=== PATIENT | female | born 1975 | race Hispanic/Latino ===

== ENCOUNTER 2024-12-22 16:44 | Inpatient (IN) | payer BC, OTHER ==
[~2024-12-22] VITALS: Ht 165.1 cm; Wt 129.7 kg
[~2024-12-22 16:44] MED LIST: BACTRIM DS TAB1 EACH PO; DOXYCYCLINE HY100 MG PO; METFORMIN HCL500 MG PO; NORCO 10MG-325MG1 EA PO; ULTRAM50 MG PO
[2024-12-22 17:48] LABS: BASOPHILS % 0.5 % (0.0-1.0); EOSINOPHILS % 2.9 % (0.0-6.0); LYMPHOCYTES % 14.9 % (18.0-39.1); MONOCYTES % 8.0 % (4.4-11.3); NEUTROPHILS % 73.4 % (38.7-80.0); RED CELL DISTRIBUTION WIDTH 12.3 % (11.7-14.4)
[2024-12-22 17:53] LABS: INR 1.01
[2024-12-22 18:03] LABS: EST GLOMERULAR FILTRATION RATE 44 ML/MIN (>=60)
[2024-12-22] MEDS: KETOROLAC TROMETHAMINE 30 MG/ML VIAL IV STA (18:06)
[2024-12-22] MEDS: SODIUM CHLORIDE 0.9% 1000ML 1,000 ML IV STA (18:08)
[2024-12-22 18:26] LABS: ETHANOL < 10.0 mg/dL (0.0-10.0)
[2024-12-22 18:33] LABS: LEUKOCYTE ESTERASE ,URINE MODERATE (NEGATIVE); PROTEIN,URINE DIPSTICK 2+ (NEGATIVE)
[2024-12-22 18:34] LABS: AMPHETAMINES SCREEN,URINE NEGATIVE (NEGATIVE); CANNABINOIDS SCREEN,URINE POSITIVE (NEGATIVE); COCAINE SCREEN,URINE NEGATIVE (NEGATIVE); METHADONE SCREEN, URINE NEGATIVE (NEGATIVE); OPIATES SCREEN,URINE NEGATIVE (NEGATIVE); URINE UROBILINOGEN 1 mg/dL (0.2 - 1)
[2024-12-22 18:46] LABS: WBC,URINE (MAN) 21-50 /HPF (0-5)
[2024-12-22 19:11] LABS: CORONAVIRUS COVID-19 AG NEGATIVE (NEGATIVE)
[2024-12-22] MEDS ORDERED: CLOPIDOGREL BISULFATE 75 MG TAB ONE (21:09)
[2024-12-22] MEDS: ASPIRIN 81 MG CHEW TAB PO ONE (21:09)
[2024-12-22] MEDS: ASPIRIN 325 MG TAB PO ONE (21:14)
[2024-12-22] MEDS: CLOPIDOGREL BISULFATE 300 MG TAB-DO NOT STOCK PO ONE (21:14)
[2024-12-22] MEDS ORDERED: DEXTROSE 50% SYRINGE 50 ML IV PRN (21:45)
[2024-12-22] MEDS: INSULIN REGULAR, HUMAN 100 UNIT/1 ML SQ SCH (21:45)
[2024-12-22 22:29] VITALS: PULSE 87; RESP 16; TEMP 98.2
[2024-12-22 22:30] VITALS: PULSE 86; RESP 18; O2SAT 99
[2024-12-22 23:30] VITALS: BP 135/66; PULSE 83; RESP 18; TEMP 98.3; O2SAT 100
[2024-12-23] VITALS (9 sets, daily range): BP systolic 133–168; BP diastolic 66–90; PULSE 74–85; RESP 17–20; TEMP 97.4–98.3; O2SAT 96–100
[2024-12-23] MEDS ORDERED: CYCLOBENZAPRINE10 MG PO (02:50)
[2024-12-23] MEDS ORDERED: METOPROLOL TART25 MG PO (02:50)
[2024-12-23] MEDS ORDERED: GABAPENTIN600 MG PO (02:50)
[2024-12-23] MEDS ORDERED: ATORVASTATIN CA40 MG PO (02:50)
[2024-12-23] MEDS ORDERED: JARDIANCE25 MG PO (02:50)
[2024-12-23] MEDS ORDERED: NIFEDIPINE ER30 MG PO (02:50)
[2024-12-23] MEDS ORDERED: TRULICITY4.5 MG/0.5 SC (02:50)
[2024-12-23] MEDS ORDERED: LIDOCAINE1 EACH TOP (02:50)
[2024-12-23] MEDS ORDERED: LOSARTAN POTAS100 MG PO (02:50)
[2024-12-23] MEDS ORDERED: LANTUS 3ML100 UNITS/ SC (02:51)
[2024-12-23 05:23] LABS: BASOPHILS % 0.5 % (0.0-1.0); EOSINOPHILS % 5.1 % (0.0-6.0); LYMPHOCYTES % 24.4 % (18.0-39.1); MONOCYTES % 9.3 % (4.4-11.3); NEUTROPHILS % 60.5 % (38.7-80.0); RED CELL DISTRIBUTION WIDTH 12.1 % (11.7-14.4)
[2024-12-23 05:56] LABS: CHOL/HDL RATIO 4.2 (3.0-3.6); EST GLOMERULAR FILTRATION RATE 57.0 ML/MIN (>=60); LDL CHOLESTEROL 78.0 MG/DL (60-130)
[2024-12-23] MEDS: ONDANSETRON HCL INJ 2MG/ML 2ML 2 MG/ML VIAL IV PRN (07:52)
[2024-12-23] MEDS: Morphine 4mg INJECTION 4 MG/ML INJ IV PRN (07:52)
[2024-12-23] MEDS: CLOPIDOGREL BISULFATE 75 MG TAB PO SCH (09:27)
[2024-12-23] MEDS: ASPIRIN 325 MG TAB PO SCH (09:28)
[2024-12-23] MEDS ORDERED: MELATONIN 5 MG TABLET PO PRN (09:30)
[2024-12-23] MEDS ORDERED: DIPHENHYDRAMINE HCL 25 MG CAP PO PRN (09:30)
[2024-12-23] MEDS ORDERED: HYDRALAZINE HCL 20 MG/ML VIAL IV PRN (09:30)
[2024-12-23] MEDS ORDERED: LIDOCAINE 4% PATCH TP PRN (09:30)
[2024-12-23] MEDS ORDERED: ACETAMINOPHEN 325 MG TAB PO PRN (09:30)
[2024-12-23] MEDS ORDERED: DOCUSATE SODIUM 100 MG CAP PO PRN (09:30)
[2024-12-23] MEDS ORDERED: BENZONATATE 100 MG CAP PO PRN (09:30)
[2024-12-23] MEDS ORDERED: SIMETHICONE 80 MG CHEW PO PRN (09:30)
[2024-12-23] MEDS ORDERED: DEXTROSE 50% SYRINGE 50 ML IV PRN (09:30)
[2024-12-23] MEDS ORDERED: ALBUTEROL/IPRATROPIUM 3 ML NEB NEB PRN (09:30)
[2024-12-23] MEDS ORDERED: IOPAMIDOL 370 MG/ML 100 ML INFUS..BTL INJ ONE (10:16)
[2024-12-23] MEDS: SODIUM CHLORIDE 0.9% 1000ML 1,000 ML IV SCH ×2 (11:10→15:07)
[2024-12-23] MEDS: POTASSIUM CHLORIDE 20 MEQ TAB CR PO PRN (11:11)
[2024-12-23] MEDS: METOPROLOL TARTRATE 25 MG TAB PO SCH (11:16)
[2024-12-23] MEDS ORDERED: ENOXAPARIN SOD INJ 40 MG/0.4 ML SYR SC SCH (17:00)
[2024-12-23] MEDS: ENOXAPARIN SOD INJ 40 MG/0.4 ML SYR SC SCH (17:03)
[2024-12-24] VITALS (8 sets, daily range): BP systolic 137–179; BP diastolic 75–89; PULSE 73–83; RESP 18–20; TEMP 97.5–98.5; O2SAT 98–100
[2024-12-24 05:32] LABS: BASOPHILS % 0.6 % (0.0-1.0); EOSINOPHILS % 5.4 % (0.0-6.0); LYMPHOCYTES % 26.8 % (18.0-39.1); MONOCYTES % 6.7 % (4.4-11.3); NEUTROPHILS % 60.3 % (38.7-80.0); RED CELL DISTRIBUTION WIDTH 12.0 % (11.7-14.4)
[2024-12-24 06:11] LABS: EST GLOMERULAR FILTRATION RATE 92.0 ML/MIN (>=60)
[2024-12-24] MEDS: PANTOPRAZOLE SOD 40 MG TABEC PO SCH (07:30)
[2024-12-24] MEDS ORDERED: REGADENOSON 0.4 MG/5 ML SYR IV ONE (09:55)
[2024-12-24] MEDS ORDERED: SODIUM CHLORIDE 0.9% 100 ML ONE (10:39)
[2024-12-24] MEDS ORDERED: IOPAMIDOL 370 MG/ML 100 ML INFUS..BTL INJ ONE (10:39)
[2024-12-24] MEDS: ATORVASTATIN 40 MG TAB PO SCH (12:25)
[2024-12-24] MEDS: LOSARTAN POTASSIUM 100 MG TAB PO SCH (12:26)
[2024-12-24] MEDS: ASPIRIN 81 MG CHEW TAB PO SCH (12:27)
[2024-12-25] VITALS (7 sets, daily range): BP systolic 88–185; BP diastolic 79–88; PULSE 76–84; RESP 16–19; TEMP 97.8–98.5; O2SAT 96–100
[2024-12-25] MEDS: Vancomycin IV 1 GM in SODIUM CHLORIDE 0.9% 250ML 250 ML IV ONE (08:56)
[2024-12-25] MEDS: AMLODIPINE BESYLATE 5 MG TAB PO SCH (12:04)
[2024-12-25] MEDS ORDERED: LOSARTAN POTASSIUM 100 MG TAB PO SCH (13:45)
[2024-12-25] MEDS: NIFEDIPINE CR 30 MG TAB PO SCH (15:31)
== END 2024-12-25 19:20 | disposition home or self-care (01) | DRG 91 ==
LOC: ER 18:06 → ERHOLD 20:56 → MED/SURG 22:59
PROVIDERS: ADMIT Internal Medicine; ATTEND Internal Medicine
DX: G47.411 Narcolepsy with cataplexy (principal); I21.A1 Myocardial infarction type 2; L97.528 Non-pressure chronic ulcer of other part of left foot with other specified severity; Z68.42 Body mass index [BMI] 45.0-49.9, adult; R55 Syncope and collapse; E66.9 Obesity, unspecified; E11.42 Type 2 diabetes mellitus with diabetic polyneuropathy; E11.43 Type 2 diabetes mellitus with diabetic autonomic (poly)neuropathy; B95.62 Methicillin resistant Staphylococcus aureus infection as the cause of diseases classified elsewhere; K31.84 Gastroparesis; I10 Essential (primary) hypertension; R53.1 Weakness; S92.021 Displaced fracture of anterior process of right calcaneus; S82.831G Other fracture of upper and lower end of right fibula, subsequent encounter for closed fracture with delayed healing; F12.10 Cannabis abuse, uncomplicated; W19.XXXD Unspecified fall, subsequent encounter; Z11.52 Encounter for screening for COVID-19; Z79.4 Long term (current) use of insulin; Z79.84 Long term (current) use of oral hypoglycemic drugs; Z79.85 Long-term (current) use of injectable non-insulin antidiabetic drugs; Z96.89 Presence of other specified functional implants; Z86.73 Personal history of transient ischemic attack (TIA), and cerebral infarction without residual deficits; Z90.49 Acquired absence of other specified parts of digestive tract; Z95.1 Presence of aortocoronary bypass graft; Z95.2 Presence of prosthetic heart valve; Z91.040 Latex allergy status; Z88.1 Allergy status to other antibiotic agents; Z82.49 Family history of ischemic heart disease and other diseases of the circulatory system
CPT/HCPCS: 36415; 70450; 70496; 70498; 70551; 71045; 71260; 78452; 80053; 80061; 80307; 80320; 80329; 81001; 82550; 82948; 83735; 83880; 84484; 85025; 85610; 85730; 87086; 87186; 93005; 93017; 93306; 93880; 93970; 94799; 95812; 99284; A9502; J0696; J1650; J1885; J2270; J2405; J2470; J3373; J7030; J7050; Q9967